=== PATIENT | female | born 1990 | race Caucasian/White ===

== ENCOUNTER 2016-08-10 05:59 | Inpatient (IN) | payer OTHER ==
[~2016-08-10] VITALS: Ht 160 cm; Wt 70.3 kg
[2016-08-10 07:08] VITALS: BP 128/89
--- NOTE | 2016-08-10 18:16 | History & Physical ---
General Information and HPI MD Statement: I have seen and personally examined MEGAN BREWER and documented this H&P. The patient is a 26 year old female at [39] weeks and [] days gestation who presented with a chief complaint of [breech presentation. History of Present Illness: This patient is a 26-year-old 1 para 0 LMP 11/09/2015 EDC 08/15/2016 at 39 weeks with known breech presentation status post failed external cephalic version who presents for elective primary low transverse section. care is complete and remarkable for breech presentation with unsuccessful version and elevated glucose challenge test with normal gtt. 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 EENTM: Reports: no symptoms. Cardiovascular: Reports: no symptoms. Respiratory: Reports: no symptoms. GI: Reports: no symptoms. Genitourinary: Reports: no symptoms. Musculoskeletal: Reports: no symptoms. Skin: Reports: no symptoms. Neurological/Psychological: Reports: no symptoms. Hematologic/Endocrine: Reports: no symptoms. Immunologic/Allergic: Reports: no symptoms. All Other Systems: Reviewed and Negative Exam & Diagnostic Data Last 24 Hrs of Vital Signs/I&O Vital Signs Date Time Temp Pulse Resp B/P Pulse O2 O2 Flow FiO2 Ox Delivery Rate 08/10 0708 128/89 Intake & Output 08/10 1600 08/10 0800 08/10 0000 Intake Total Output Total Balance Patient 155 lb Weight Obstetric Exam Wgt Gained During : 35 pounds Pelvimetry: Gynecoid Dilation (cm): 0 Effacement (%): 0 Station: -2 Membranes: intact Fluid: unknown Fundal Height (cm): 40 Multiple Gestation? No Contractions: None #1 - FHR Baseline: 135 Category: 1 Estimated Weight: 7.8 Presentation: Reach Patient for Induction? No Labs Blood Type & Rh: A positive Antibody Screen: Negative Hct/Hgb & Platelets #1: 38, 12, 244 Hct/Hgb & Platelets #2: 40, 13, 307 Rubella: Immune VDRL #1: Nonreactive VDRL #2: Nonreactive HbsAg: Negative HIV #1: Negative HIV #2 Negative 1 Hr P 3 Hr P, 162, 141, 118 Group B Strep: Negative Initial Ultrasound: Within normal limits Anatomy Ultrasound: Within normal limits Ultrasound for EFW: 6.5 Genetic Testing: Negative Last 24 Hrs of Labs/Colton: Microbiology 08/10 0745 URINE ROUT: Urine Culture - RECD Assessment/Plan Assessment/Plan: Tay breech presentation at 39 weeks failed version Primary low-transverse section As Ranked By This Provider Problem List: 1. Core Measures/Miscellaneous Venous Thromboembolism VTE Risk Factors: /, Surgery VTE Contraindications: No Contraindications VTE Diagnosis: No Beta Montez Is Beta Montez a Home Med? No Antibiotics Is Patient on Antibiotics? Yes
--- NOTE | 2016-08-10 18:20 | Operative Report ---
Operative/Inv Procedure Report Surgery Date: 08/10/16 Name of Procedure: Primary low transverse section Pre-Operative Diagnosis: Nabeel breech presentation at 39 weeks Post-Operative Diagnosis: Same Estimated Blood Loss: 650 Surgeon/Shoe Stamper: JORGE L JEFFERS MD,ALEXEI Trejo M.D. Anesthesia: spinal Operative/Procedure Note Note: The patient was brought to the operating room and placed on the OR table in the sitting position where she underwent spinal anesthetic without complication. Venodyne boots were previously placed and activated. She was repositioned in a modified dorsal supine with a block under her right. A Cordova catheter was inserted and drained clear yellow urine. The abdomen was then prepped and draped and tested in the usual sterile fashion. A Pfannenstiel skin incision was made with the scalpel and this was taken down to the layer of the fascia. The fascia was nicked in the midline and extended bilaterally. The underlying rectus muscles were in the midline. Peritoneal cavity was entered bluntly. A bladder flap was created using Metzenbaum scissors and placed behind the Pinson bladder blade. A low transverse uterine incision made with the scalpel and the membranes were entered revealing clear fluid. A liveborn female was delivered from the nabeel breech rotation using the appropriate maneuvers. The baby's the vocal cord was clamped 2 and cut and sent to the awaiting assembly operator. The placenta was then removed manually intact with three -vessel cord. The uterus was exteriorized and wiped clean with a wet lap sponge of all clot and tissue debris. The uterus was then closed in 2 layers of 0 Polysorb, the second imbricating the first. The pelvis and abdomen were copiously irrigated and the uterus was placed back into the abdominal cavity. Suture line was once again visualized and noted to be hemostatic. The peritoneum was closed using 2-0 Polysorb suture material in a running nonlocking fashion. Fascia was then reapproximated using 0 Polysorb in a running nonlocking fashion. Subcutaneous tissues were irrigated where needed and coagulated. The skin was closed using 4-0 Biosyn in a subcuticular fashion. A dry sterile dressing was applied to the wound the fundus was expressed and the patient was transferred to the recovery room in satisfactory condition. All needle, sponge, and instrument counts were correct at the end of the procedure 2.
[2016-08-11 08:48] LABS: ABSOLUTE BASOPHIL COUNT 0 /CUMM (0.0-0.2); ABSOLUTE EOSINOPHIL COUNT 0.1 /CUMM (0.0-0.7); ABSOLUTE LYMPH COUNT 1.8 /CUMM (1.2-3.4); ABSOLUTE MONOCYTE COUNT 0.2 /CUMM (0.10-0.60); BASOPHIL % 0 % (0.0-2.0); EOSINOPHIL % 0.5 % (0-5); GRANULOCYTE % 91.2 % (42.2-75.2); HEMATOCRIT 42.6 % (37-47); MEAN CORPUSCULAR HGB 31.4 PG (27.0-31.0); MEAN CORPUSCULAR HGB CONC 33.4 G/DL (33.0-37.0); MEAN PLATELET VOLUME 9.4 FL (7.4-10.4); PLATELET COUNT 310 /CUMM (130-400); RBC DISTRIBUTION WIDTH 14.1 % (11.5-14.5); RED BLOOD CELL CT 4.54 /CUMM (4.20-5.40)
[2016-08-11 09:20] LABS: WHITE BLOOD CELL COUNT 24.1 /CUMM (4.8-10.8)
[2016-08-13] MEDS ORDERED: PERCOCET 5-3251 EACH PO (08:10)
[2016-08-13] MEDS ORDERED: DOCUSATE SODIU100 M3 PO (08:10)
[2016-08-13] MEDS ORDERED: IBUPROFEN800 M1 PO (08:10)
[2016-08-13] MEDS ORDERED: SIMETHICONE80 M1 PO (08:10)
--- NOTE | 2016-08-13 08:23 | PN- Post Delivery/GYN ---
Subjective Subjective: NO C/O Review of Systems: NEG Objective Last 24 Hrs of Vital Signs/I&O VSS Physical Exam: INCISION C/D/I EXT NT Assessment/Plan Assessment/Plan S/P C/S POD3 STABLE DISCHARGE Problem List: 1.
--- NOTE | 2016-08-19 18:13 | Surgical Discharge Summary ---
Visit Information Visit Dates Admission Date: 08/10/16 Discharge Date: 08/13/16 History of Present Illness Chief Complaint: Breech presentation Surgical History Pertinent Surgical History: none Psychosocial History What is Your Primary Language? Urdu Review of Systems: neg Hospital Course Course Attending Physician: ALEXEI FRANCO MD Primary Care Physician: PATIENT HAS NO PRIMARY CARE DR Hospital Course: The patient was admitted and underwent elective section for breech presentation. She was sent to recovery in good condition. Postoperative day #1 she was doing well. Her diet was advance her activity was increased her Cordova was discontinued. She was afebrile and her vital signs are stable and her H&H was stable as well. On postoperative day #2 the patient was continuing to do well breast-feeding ambulating voiding and tolerating regular diet. Postoperative day #3 the patient was discharged home. Allergies: Coded Allergies: No Known Allergies (08/10/16) Disposition Summary Disposition Principal Diagnosis: Breech presentation Additional Diagnosis: 39 week Discharge Disposition: home or self care Discharge Instructions General Discharge Information Code Status: Full Code Patient's Diet: Regular Patient's Activity: Pelvic rest with weight restrictions Follow-Up Instructions/Appts: 1 week incision check with Dr. Franco Medications at Discharge Discharge Medications: Start taking the following new medications: Ibuprofen (Ibuprofen) 800 MG TABLET 800 Milligram ORAL EVERY SIX HOURS NEEDED as needed for UTERINE CRAMPING Qty = 36 No Refills Comments: Last Taken:08/13/16 Time:0500 Oxycodone HCl/Acetaminophen (Percocet 5-325 MG Tablet) 5 MG-325 MG TABLET 1 Tablet ORAL EVERY 4 HOURS NEEDED as needed for PAIN SCALE 4-6 (MODERATE ) Qty = 24 No Refills Comments: Last Taken:08/13/16 Time:0500 Simethicone (Simethicone) 80 MG TAB.CHEW 80 Milligram ORAL EVERY 4 HOURS NEEDED as needed for GAS Qty = 30 No Refills Docusate Sodium (Docusate Sodium) 100 MG CAPSULE 100 Milligram ORAL AT BEDTIME as needed for STOOL SOFTENER Qty = 60 No Refills
== END 2016-08-13 10:43 | DRG 766 ==
LOC: GNO 05:59
PROVIDERS: ADMIT Obstetrics & Gynecology
PROC: 10D00Z1 Extraction of Products of Conception, Low, Open Approach (ICD-10-PCS; principal; 2016-08-10)
DX: O32.1XX0 Maternal care for breech presentation, not applicable or unspecified (principal); Z37.0 Single live birth; Z3A.39 39 weeks gestation of pregnancy
CPT/HCPCS: GNOS; 87086; J0131; J0690; J1885; J2210; J7120